=== PATIENT | male | born 1970 | race Caucasian/White ===

== ENCOUNTER 2021-02-08 20:00 | Emergency (ER) | payer MEDICAID ==
[~2021-02-08] VITALS: Ht 193 cm; Wt 90.0 kg
[2021-02-08 20:25] VITALS: BP 139/90
[2021-02-09] MEDS ORDERED: KEPP250 MT (21:32)
== END 2021-02-09 05:43 | disposition left against medical advice (07) ==
LOC: ER 20:00
DX: Z53.21 Procedure and treatment not carried out due to patient leaving prior to being seen by health care provider (principal)